=== PATIENT | female | born 1980 | race African-American/Black ===

== ENCOUNTER 2021-05-14 12:50 | Emergency (ER) | payer SELFPAY ==
[~2021-05-14] VITALS: Ht 170.2 cm; Wt 65.0 kg
[2021-05-14] MEDS: SODIUM CHLORIDE 0.9% 1,000 ML IV ONE (13:33)
[2021-05-14] MEDS: DIPHENHYDRAMINE 50MG/ML VIAL IM ONE (13:53)
[2021-05-14] MEDS: LORAZEPAM 2MG/ML CPJ IM ONE (13:53)
[2021-05-14] MEDS: HALOPERIDOL LACTATE 5MG/ML VIAL IM ONE (13:53)
[2021-05-14 15:50] LABS: BASOPHILS % 1.6 % (0.0-2.0); EOSINOPHILS % 0.8 % (0.0-5.0); HEMATOCRIT. 27.9 % (36.0-48.0); HEMOGLOBIN. 8.5 g/dL (12.0-16.0); LYMPHOCYTES % 29.4 % (20.0-50.0); MEAN CORPUSCULAR HEMOGLOBIN 19.4 pg (28.0-32.0); MEAN CORPUSCULAR VOLUME 63.7 fL (81.0-99.0); MEAN PLATELET VOLUME 6.5 fl (7.4-10.4); MONOCYTES % 8.4 % (2.0-8.0); NEUTROPHILS % 59.8 % (40.0-76.0); PLATELET 429 x1000/uL (130-400); RED BLOOD CELL COUNT 4.38 mill/uL (4.2-5.4); RED CELL DISTRIBUTION WIDTH 19.4 % (11.6-14.6)
[2021-05-14 15:51] LABS: CHLORIDE 106 mEq/L (98-107)
[2021-05-14 15:55] LABS: ETHANOL BLOOD < 10 mg/dL
[2021-05-14 15:59] LABS: HCG SCREEN NEGATIVE
[2021-05-14 16:00] LABS: CREATINE KINASE 155 IU/L (26-192)
[2021-05-14 16:22] LABS: PLATELET ESTIMATE INCREASED
[2021-05-15 01:53] VITALS: BP 135/67
== END 2021-05-15 01:56 | disposition home or self-care (01) ==
LOC: ER 12:50 → EDBD 12:50 → ER 05-15 01:56
DX: G92.9 Unspecified toxic encephalopathy (principal); F16.10 Hallucinogen abuse, uncomplicated; Z98.890 Other specified postprocedural states
CPT/HCPCS: 36415; 70450; 71045; 72125; 80053; 80307; 80320; 80329; 82550; 83605; 84703; 85025; 96360; 96361; 96372; 99285; J1200; J1630; J2060; J7030; G0480